=== PATIENT | male | born 1960 | race Caucasian/White ===

== ENCOUNTER 2019-10-24 13:55 | Emergency (ER) | payer OTHER ==
[~2019-10-24] VITALS: Ht 167.6 cm; Wt 68.5 kg
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
--- NOTE | 2019-10-24 14:40 | NUR ---
MD WAS AT THE BEDSIDE. PT VERBALIZED THAT HE IS NOT FEELING SUICIDAL ANYMORE.
--- NOTE | 2019-10-24 14:55 | NUR ---
Patient discharged to home in stable condition. Written and verbal after care instructions given. Patient verbalizes understanding of instruction. Pt ambulatory with a steady gait. RX given to pt and given pt teaching.
[2019-10-24 15:10] VITALS: BP 131/78
== END 2019-10-24 15:11 | disposition home or self-care (01) ==
LOC: ER 13:58
DX: Z76.0 Encounter for issue of repeat prescription (principal); Z59.0 Homelessness; F31.9 Bipolar disorder, unspecified; F20.9 Schizophrenia, unspecified; F22 Delusional disorders

== ENCOUNTER 2019-10-24 15:22 | Emergency (ER) | payer OTHER ==
[~2019-10-24] VITALS: Ht 170.2 cm; Wt 73.0 kg
--- NOTE | 2019-10-24 15:50 | NUR ---
SEEN AND EXAMINED BY .
--- NOTE | 2019-10-24 16:25 | NUR ---
Patient given written and verbal discharge instructions. Patient verbalizes understanding of instructions. Patient is ambulatory with steady gait. Refuses offer of intermediate placement. Patient given list of available shelters in surrounding area.
[2019-10-24 16:26] VITALS: BP 129/84
== END 2019-10-24 16:28 | disposition home or self-care (01) ==
LOC: ER 15:27
DX: Z76.5 Malingerer [conscious simulation] (principal); R19.7 Diarrhea, unspecified; R10.9 Unspecified abdominal pain; Z59.0 Homelessness

== ENCOUNTER 2019-10-24 17:20 | Emergency (ER) | payer OTHER ==
[~2019-10-24] VITALS: Ht 167.6 cm; Wt 68.5 kg
[2019-10-24 17:20] VITALS: BP 129/84
--- NOTE | 2019-10-24 18:00 | NUR ---
SEEN AND EXAMINED BY .
--- NOTE | 2019-10-24 18:20 | NUR ---
Patient given written and verbal discharge instructions. Patient verbalizes understanding of instructions. Patient is ambulatory with steady gait. Refuses offer of jail placement. Patient given list of available shelters in surrounding area.
== END 2019-10-24 18:21 | disposition home or self-care (01) ==
LOC: ER 17:27
DX: Z76.5 Malingerer [conscious simulation] (principal); R10.9 Unspecified abdominal pain; Z59.0 Homelessness

== ENCOUNTER 2021-06-06 13:05 | Emergency (ER) | payer OTHER ==
[~2021-06-06] VITALS: Ht 170.2 cm; Wt 68.0 kg
--- NOTE | 2021-06-06 13:25 | NUR ---
[id number], suicidal thoughts but no plan, wan't voluntary admission to [facility]. Kept comfortable, will continue to monitor accordingly.
[2021-06-06 14:04] LABS: BASOPHILS % (AUTO) 0.3 % (0.0-2.0); EOSINOPHILS % (AUTO) 0.1 % (0.0-6.0); HEMATOCRIT 42 % (39-51); LYMPHOCYTES # (AUTO) 0.8 K/uL (0.8-4.8); LYMPHOCYTES % (AUTO) 7.1 % (20.0-44.0); MEAN CORPUSCULAR HGB CONC 33 g/dl (31.0-36.0); MEAN CORPUSCULAR VOLUME 91 fL (80-96); MONOCYTES # (AUTO) 0.9 K/uL (0.1-1.30); MONOCYTES % (AUTO) 7.5 % (2.0-12.0); NEUTROPHILS # (AUTO) 9.8 K/uL (1.8-8.9); PLATELET COUNT (AUTO) 208 K/uL (150-450); RED BLOOD CELL COUNT(AUTO) 4.63 MIL/uL (4.5-6.0); WHITE BLOOD COUNT (AUTO) 11.5 K/uL (4.3-11.0)
[2021-06-06 14:07] LABS: CALCIUM, SERUM 9.1 mg/dL (8.5-10.1); CARBON DIOXIDE 28 mmol/L (21-32); CHLORIDE 101 mmol/L (98-107); CREATININE 1.3 mg/dL (0.6-1.3); GLUCOSE 131 mg/dL (74-106); SODIUM SERUM 140 mmol/L (136-145); UREA NITROGEN, BLOOD 19 mg/dL (7-18)
[2021-06-06 14:13] LABS: ALANINE AMINOTRANSFERASE 27 U/L (12-78); ALCOHOL, BLOOD < 3 mg/dL (0-0); ALKALINE PHOSPHATASE 108 U/L (46-116); ASPARTATE AMINOTRANSFERASE 33 U/L (15-37); BILIRUBIN,DIRECT 0.2 mg/dL (0.0-0.2); BILIRUBIN,TOTAL 0.6 mg/dL (0.2-1.0)
[2021-06-06 14:20] LABS: ACETAMINOPHEN < 10 ug/ml (10-30)
[2021-06-06] MEDS ORDERED: LORAZEPAM 1 MG TABLET PO ONE (14:30)
[2021-06-06] MEDS ORDERED: LORAZEPAM 1 MG TABLET ONE (15:15)
[2021-06-06 15:27] LABS: ALBUMIN 4.3 g/dL (3.4-5.0)
--- NOTE | 2021-06-06 15:36 | NUR ---
SS Note: Pt. Is a 60-year-old female who demonstrates adequate insight to the reason for hospitalization. Per pt., he came in for suicidal ideation. Per MD, pt. was discharged from a hospital and was on a 14-day hold. Per pt., he does not know the name of the hospital, pt. stated it was somewhere in [facility]. Pt. was oriented x3, alert, and uncooperative. During interview, pt. was capable of following directions and appeared unkempt. Pt.'s speech was at a normal rate and pt.'s mood was elevated. Pt. denies mental health, substance abuse, suicidal ideation, or homicidal ideation. Pt. denies auditory hallucinations, visual hallucinations, paranoia, or delusions. Per pt., he had a beer last night. Pt. stated that he finished his psych medications yesterday and needs more. Plan: Pt. expressed that he wants voluntary to [facility]. EDWARD spoke with Lisette GUTIERREZ and she stated that pt. is able to go to [facility] if he is voluntary. Please fax clinicals to [facility] once pt. is medically cleared.
[2021-06-06] MEDS ORDERED: OLANZAPINE 10 MG VIAL IM ONE ×2 (16:00→16:07)
[2021-06-06 16:05] LABS: BILIRUBIN,URINE NEGATIVE (NEGATIVE); COLOR,URINE YELLOW (YELLOW); LEUKOCYTE ESTERASE ,URINE NEGATIVE (NEGATIVE); NITRITE, URINE NEGATIVE (NEGATIVE); PROTEIN,URINE NEGATIVE (NEGATIVE); UGLUCOSE NEGATIVE (NEGATIVE)
[2021-06-06] MEDS ORDERED: LIDOCAINE /MPF 1% VIAL 5 ML VIAL ONE (16:07)
[2021-06-06 16:33] LABS: WBC,URINE 0-2 /HPF (0-3)
[2021-06-06 16:34] LABS: BACTERIA,URINE Rare /HPF (None Seen)
[2021-06-06 16:35] LABS: SQUAMOUS EPITHELIAL CELL,UR None Seen /HPF (None Seen)
--- NOTE | 2021-06-06 19:12 | NUR ---
[facility] FAXED TO [facility].
--- NOTE | 2021-06-06 22:16 | NUR ---
PT REQUESTING TO BE DISCHARGED FROM ER. PT DENIES SI/HI. DR MURILLO NOTIFIED.
--- NOTE | 2021-06-06 22:20 | NUR ---
PT OK TO BE DISCHARGED PER DR MURILLO. Patient discharged to home in stable condition. Written and verbal after care instructions given. Patient verbalizes understanding of instruction.Patient is awake and alert to self, day, and place. PT ambulatory with a steady gait
[2021-06-07 04:29] VITALS: BP 124/79
== END 2021-06-06 22:20 | disposition home or self-care (01) ==
LOC: ER 13:09
DX: R45.851 Suicidal ideations (principal); F15.10 Other stimulant abuse, uncomplicated; Z20.822 Contact with and (suspected) exposure to COVID-19; F41.9 Anxiety disorder, unspecified; Z59.00 Homelessness unspecified; F31.9 Bipolar disorder, unspecified; R03.0 Elevated blood-pressure reading, without diagnosis of hypertension
CPT/HCPCS: 36415; 80048; 80076; 80143; 80307; 80320; 81001; 85025; 87426; 96372; 99285; C9803; J3490 ×2; G0480